=== PATIENT | male | born 1975 | race Two or more races ===

== ENCOUNTER 2019-03-20 23:18 | Emergency (ER) | payer SELFPAY ==
[~2019-03-20] VITALS: Ht 175.3 cm; Wt 102.5 kg
--- NOTE | 2019-03-20 23:20 | NUR ---
PT [id number] FOUND LAYING ON GRASS, +ETOH PER RA. PT ASLEEP. PLACED ON MONITOR AND PULSE OX. NO ACUTE DISTRESS NOTED.
--- NOTE | 2019-03-20 23:31 | NUR ---
PT TAKEN TO CT
--- NOTE | 2019-03-20 23:50 | NUR ---
DR RYANN ALLISON PER DR DINH.
[2019-03-20] MEDS ORDERED: PROPOFOL 100 ML ONE (23:57)
[2019-03-21] MEDS ORDERED: LEVETIRACETAM (500MG) 500 MG/5 ML VIAL IV ONE
[2019-03-21] MEDS: LEVETIRACETAM (500MG) 500 MG in IV NS 0.9% 100 ML IV SCH ×2 (00:15→00:16)
--- NOTE | 2019-03-21 00:15 | NUR ---
RT NOTE Late Entry: RT called beside to intubate pt per airway protection. Pt orally intubated via ETT sz #7.5, 22CM @ the lipline. Co2 colormetric color change confirmed. Equal bilateral breath sounds heard on auscultation. Pt placed on [facility] vent on noted settings per Dr Morgan. Alarms are set and audible. Vent plugged into red outlet. Ambu bag bedside. Will continue to monitor. ABG to be taken in 30 minutes. Waiting on chest Xray results Addendum: 03/21/19 at 0051 by GENESIS JIANG RT Amended: Links added.
[2019-03-21 00:18] LABS: BASOPHILS % (AUTO) 0.4 % (0.0-2.0); HEMATOCRIT 42 % (39-51); HEMOGLOBIN 14.1 g/dL (13.5-17.5); LYMPHOCYTES # (AUTO) 0.4 /CMM (0.8-4.8); LYMPHOCYTES % (AUTO) 7.1 % (20.0-44.0); MEAN CORPUSCULAR HGB CONC 34 g/dl (31.0-36.0); MEAN CORPUSCULAR VOLUME 96 fL (80-96); MONOCYTES # (AUTO) 0.3 /CMM (0.1-1.30); MONOCYTES % (AUTO) 4.6 % (2.0-12.0); NEUTROPHILS # (AUTO) 5.1 /CMM (1.8-8.9); NEUTROPHILS % (AUTO) 87.9 % (43.0-81.0); PLATELET COUNT (AUTO) 66 /CMM (150-450); RED BLOOD CELL COUNT(AUTO) 4.37 MIL/uL (4.5-6.0); WHITE BLOOD COUNT (AUTO) 5.8 K/uL (4.3-11.0)
--- NOTE | 2019-03-21 00:23 | NUR ---
INTUBATION 2358- 154/85 98% 120hr 0000- ETOMIDATE 10 0001-MELLISA 60 0001- 184/103 100% 103hr 0002- Rocc 20 0004- 210/135 90% 155hr 0006- color change bilat lung sounds 22 lip 0008-prop started 50 0009- 207/126 92% 135hr 0010- mccall 0013- NG 0016- keppra 210ml/hr
--- NOTE | 2019-03-21 00:26 | NUR ---
DR QUEZADA PAGED PER DR DINH.
[2019-03-21 00:29] LABS: CALCIUM, SERUM 8.7 mg/dL (8.5-10.1); CARBON DIOXIDE 24 mmol/L (21-32); CHLORIDE 102 mmol/L (98-107); CREATININE 0.8 mg/dL (0.6-1.3); GLUCOSE 125 mg/dL (74-106); SODIUM SERUM 140 mmol/L (136-145); UREA NITROGEN, BLOOD 5 mg/dL (7-18)
[2019-03-21] MEDS ORDERED: ROCURONIUM BROMIDE 100 MG/10 ML VIAL IV ONE (00:30)
[2019-03-21] MEDS ORDERED: ETOMIDATE 2 MG/ML VIAL IV ONE (00:30)
[2019-03-21] MEDS ORDERED: PROPOFOL 100 ML IV PRN (00:30)
[2019-03-21 00:36] LABS: BILIRUBIN,DIRECT 2.2 mg/dL (0.0-0.2)
[2019-03-21 00:37] LABS: ALANINE AMINOTRANSFERASE 69 U/L (12-78); ALBUMIN 3.3 g/dL (3.4-5.0); ALKALINE PHOSPHATASE 118 U/L (46-116); ASPARTATE AMINOTRANSFERASE 232 U/L (15-37); TOTAL PROTEIN, SERUM 9.2 g/dL (6.4-8.2)
[2019-03-21 00:38] LABS: ACETAMINOPHEN 0 ug/ml (10-30); ALCOHOL, BLOOD 148 mg/dL (0-0); SALICYLATE < 0.2 mg/dL (2.8-20.0)
--- NOTE | 2019-03-21 01:05 | NUR ---
PER [facility] TRANSFER SHAKIR #30. NO BEDS AVAILABLE BEDS FOR TRANSFER AT THIS MOMENT.
--- NOTE | 2019-03-21 01:05 | NUR ---
Noe wayne in [facility] - 03/21/19 at 0111 by YA PER SHAKIR #30. NO BEDS AVAILABLE BEDS FOR TRANSFER AT THIS MOMENT.
--- NOTE | 2019-03-21 01:10 | NUR ---
NEURO CHECK DONE EYES NOT REACTIVE TO LIGHT. R EYE 4MM L EYE 1MM
--- NOTE | 2019-03-21 01:15 | NUR ---
[facility] TRANSFER CENTER CALLED FOR HIGHER LEVEL OF CARE.
--- NOTE | 2019-03-21 01:20 | NUR ---
PT ACCEPTED TO [facility] BY DR KARIME ROTHMAN. PENDING ETA.
[2019-03-21 01:29] LABS: ABG BASE EXCESS -1.8 mmol/L; ABG OXYGEN SATURATION 98.7 % (92.0-98.5); ABG PCO2 36.6 mmHg (35.0-45.0); ABG PH 7.405 (7.350-7.450); ABG PO2 158.6 mmHg (75.0-100.0); AaDO2 517.8 mmHg; COHb 0.7 % (0.5-1.5); MetHb 0.5 % (0.0-1.5); O2Hb 97.5 % (94.0-97.0); SITE, ABG Right Radial; VENT MODE, BG AC 16 500 100% +5
--- NOTE | 2019-03-21 01:33 | NUR ---
[facility] ETA 30MIN
--- NOTE | 2019-03-21 01:38 | NUR ---
REPORT GIVEN TO GERARDO SARAVIA AT [facility]
[2019-03-21] MEDS ORDERED: LORAZEPAM INJ 2 MG/ML VIAL ONE (01:39)
[2019-03-21 01:42] LABS: LYMPHOCYTES % (MANUAL) 6 % (16-48); MONOCYTES % (MANUAL) 1 % (0-11.0); NEUTROPHILS % (MANUAL) 93 (42-76)
[2019-03-21] MEDS ORDERED: DESMOPRESSIN 4 MCG/ML AMPUL ONE (01:46)
[2019-03-21] MEDS ORDERED: PROPOFOL 100 ML ONE (01:59)
[2019-03-21] MEDS ORDERED: LORAZEPAM INJ 2 MG/ML VIAL IV ONE (02:00)
[2019-03-21] MEDS ORDERED: NS 0.9% IV ONE ×2 (02:00)
[2019-03-21] MEDS ORDERED: DESMOPRESSIN IV ONE ×2 (02:00)
--- NOTE | 2019-03-21 02:15 | NUR ---
Transfer at bedside
[2019-03-21 02:16] VITALS: BP 140/81
--- NOTE | 2019-03-21 02:21 | NUR ---
PT TRANSFERED PER [facility]
== END 2019-03-21 02:25 | disposition short-term general hospital (02) ==
LOC: ER 23:20
DX: S00.81XA Abrasion of other part of head, initial encounter (principal); I61.8 Other nontraumatic intracerebral hemorrhage; F10.129 Alcohol abuse with intoxication, unspecified; F19.10 Other psychoactive substance abuse, uncomplicated; W19.XXXA Unspecified fall, initial encounter; Y93.89 Activity, other specified; Y92.89 Other specified places as the place of occurrence of the external cause; Y99.8 Other external cause status; Y90.6 Blood alcohol level of 120-199 mg/100 ml
CPT/HCPCS: 31500; 31720; 36415; 36600 ×2; 51702; 70450; 71045; 80048; 80076; 80305; 80307; 80329; 82803; 82962; 84484; 85025; 85652; 85730; 93005; 96365; 96375; 99291; 99292; A4216 ×2; G0480; J1953; J2060; J2597 ×2; J3490 ×3; J7030

== ENCOUNTER 2019-10-28 13:01 | Inpatient (IN) | payer OTHER ==
[2019-10-28] VITALS: BP 82/53
[~2019-10-28] VITALS: Ht 177.8 cm; Wt 79.4 kg
[2019-10-28] MEDS ORDERED: PANTOPRAZOLE 40 MG VIAL IV ONE (13:30)
[2019-10-28] MEDS ORDERED: IV NS 0.9% 500 ML BAG IV ONE (13:30)
--- NOTE | 2019-10-28 13:35 | NUR ---
MAURILIO FROM [facility]. TO ER BED 7. AAOX1, NOT IN RESP DSITRESS, BREATHING EVEN AND UNLABORED. SENT BY THE FACILITY FOR EVAL OF BRIGHT - DARK RED BLOODY STOOL WHICH WAS FIRST NOTED @ 0430. PT WAS REPORTED TO HAVE 2 EPISODE OF THE BLOODY STOOL. NO NAUSEA NOR VOMMITING NOTED. WAS AT THE BEDSIDE FOR EVAL. ORDERS RECEIVED NOTED AND CARRIED OUT
--- NOTE | 2019-10-28 13:37 | NUR ---
MOVE SHEET SUBMITTED AND CALLED FOR A TELE BED.
[2019-10-28] MEDS ORDERED: PANTOPRAZOLE 40 MG VIAL ONE (13:44)
[2019-10-28 13:48] LABS: BASOPHILS # (AUTO) 0.1 /CMM (0.0-0.2); BASOPHILS % (AUTO) 0.5 % (0.0-2.0); EOSINOPHILS % (AUTO) 0.8 % (0.0-6.0); HEMATOCRIT 39 % (39-51); LYMPHOCYTES # (AUTO) 1.3 /CMM (0.8-4.8); LYMPHOCYTES % (AUTO) 12.2 % (20.0-44.0); MEAN CORPUSCULAR HGB CONC 34 g/dl (31.0-36.0); MEAN CORPUSCULAR VOLUME 88 fL (80-96); MONOCYTES # (AUTO) 1.2 /CMM (0.1-1.30); MONOCYTES % (AUTO) 10.9 % (2.0-12.0); NEUTROPHILS % (AUTO) 75.6 % (43.0-81.0); PLATELET COUNT (AUTO) 167 /CMM (150-450); RED BLOOD CELL COUNT(AUTO) 4.37 MIL/uL (4.5-6.0); WHITE BLOOD COUNT (AUTO) 10.5 K/uL (4.3-11.0)
[2019-10-28 13:56] LABS: CALCIUM, SERUM 9.7 mg/dL (8.5-10.1); CARBON DIOXIDE 25 mmol/L (21-32); CHLORIDE 100 mmol/L (98-107); CREATININE 0.7 mg/dL (0.6-1.3); GLUCOSE 104 mg/dL (74-106); POTASSIUM 4.3 mmol/L (3.5-5.1); SODIUM SERUM 133 mmol/L (136-145); UREA NITROGEN, BLOOD 12 mg/dL (7-18)
[2019-10-28 14:02] LABS: ALANINE AMINOTRANSFERASE 39 U/L (12-78); ALKALINE PHOSPHATASE 151 U/L (46-116); ASPARTATE AMINOTRANSFERASE 49 U/L (15-37); BILIRUBIN,DIRECT 0.3 mg/dL (0.0-0.2); BILIRUBIN,TOTAL 0.9 mg/dL (0.2-1.0); LIPASE 202 U/L (73-393); TOTAL PROTEIN, SERUM 8.8 g/dL (6.4-8.2)
[2019-10-28] MEDS ORDERED: IV NS 0.9% 1,000 ML IV ONE (15:00)
--- NOTE | 2019-10-28 15:06 | NUR ---
DR CORDERO PAGED. AWAITING CALL BACK.
--- NOTE | 2019-10-28 15:25 | NUR ---
CONSUELO CALLED BACK AND WANTS [facility].
--- NOTE | 2019-10-28 15:28 | NUR ---
[facility] PAGED
--- NOTE | 2019-10-28 15:36 | NUR ---
GERARDO PAEZ AT BEDSIDE
[2019-10-28] MEDS ORDERED: MAG HYDROX/AL HYDROX/SIMETH 30 ML UDC PO PRN (16:00)
[2019-10-28] MEDS ORDERED: ONDANSETRON HCL/PF 4 MG/2 ML VIAL IVP PRN (16:00)
[2019-10-28] MEDS ORDERED: Z GUARD REMEDY 2 OZ OINT TP PRN (16:00)
[2019-10-28] MEDS ORDERED: MAGNESIUM HYDROXIDE 30 ML UDC PO PRN (16:00)
[2019-10-28] MEDS ORDERED: ACETAMINOPHEN 325 MG TABLET PO PRN (16:00)
[2019-10-28] MEDS ORDERED: DEXT15DR6 OP (16:07)
[2019-10-28] MEDS ORDERED: PSYL1PAC8 PO (16:23)
[2019-10-28] MEDS ORDERED: RIFA550T PO (16:23)
[2019-10-28] MEDS ORDERED: THIA100T74 PO (16:23)
[2019-10-28] MEDS ORDERED: ACET-2605 PO (16:23)
[2019-10-28] MEDS ORDERED: OLAN10TA3 PO (16:23)
[2019-10-28] MEDS ORDERED: ALBU6.7H9 INH (16:23)
[2019-10-28] MEDS ORDERED: NA P133E RC (16:23)
[2019-10-28] MEDS ORDERED: SACC250C PO (16:23)
[2019-10-28] MEDS ORDERED: ACET-868 PO (16:23)
[2019-10-28] MEDS ORDERED: CRAN3875 PO (16:23)
[2019-10-28] MEDS ORDERED: FURO-145 PO (16:23)
[2019-10-28] MEDS ORDERED: FAMO20TA8 PO (16:23)
[2019-10-28] MEDS ORDERED: MAGN24002 PO (16:23)
[2019-10-28] MEDS ORDERED: LACT10SO PO (16:23)
[2019-10-28] MEDS ORDERED: PROP10TA10 PO (16:23)
[2019-10-28] MEDS ORDERED: SPIR50TA5 PO (16:23)
[2019-10-28] MEDS ORDERED: FOLIC ACID PO (16:23)
[2019-10-28] MEDS ORDERED: MELA5TAB PO (16:23)
[2019-10-28] MEDS ORDERED: GABA-536 PO (16:23)
--- NOTE | 2019-10-28 18:10 | NUR ---
report given to RANI Lipscomb for roni.
--- NOTE | 2019-10-28 18:35 | NUR ---
pt tranported to unit on [facility] with emt and rn at bedside w/ acls protocol. nad noted during transport.
[2019-10-28 19:00] VITALS: BP 92/46
--- NOTE | 2019-10-28 19:00 | NUR ---
Patient arrived around 1845, A/o x1, confused, showing no signs of acute distress or SOB, stable on RA. Vital signs BP 92/46 HR 67 RR 20 T 99.6 o2 sat 98% on RA. Patient stood up and ambulated to bathroom with assistance, stool OB collected and sent to lab. Patient weight is 215 lbs. Fall safety aspiration and seizure precautions enforced. Bedside report given to senior policy advisor RN for YAIR.
[2019-10-28 20:00] VITALS: BP 116/47
--- NOTE | 2019-10-28 20:00 | NUR ---
RN ADMITTING NOTES RECEIVED PATIENT LYING IN BED, CALM RESTING COMFORTABLY, AM NURSE WAS ABLE TO COLLECT STOOL SPECIMEN FOR OCCULT BLOOD. NO SIGNS OF ACUTE RESPIRATORY OR ACUTE CARDIAC DISTRESS NOTED. PROVIDED COMFORT, SAFETY MEASURES IN PLACE, ASPIRATION PRECAUTION EMPHASIZED, CALL LIGHT WITHIN EASY REACH, BED IN LOW LOCKED POSITION. ADMISSION PROCESS INITIATED, INITIAL PHYSICAL ASSESSMENT INITIATED. ALL NEEDS ANTICIPATED, OFFERED TO USE DIAPER PATIENT REFUSED. URINAL AT BEDSIDE. WILL CONTINUE TO MONITOR ACCORDINGLY.
[2019-10-28 20:25] LABS: OCCULT BLOOD STOOL POSITIVE (NEGATIVE)
[2019-10-28] MEDS: IV NS 0.9% 1,000 ML IV PRN (21:16)
[2019-10-29 04:00] VITALS: BP 82/53
--- NOTE | 2019-10-29 06:20 | NUR ---
RN NOTES ALL NEEDS ATTENDED AND MET, SAFETY MEASURES IN PLACE, ABLE TO REST AND SLEPT AT INTERVALS, KEPT CLEAN DRY AND COMFORTABLE, REPOSITIONED FOR COMFORT. HAD X1 BLOODY STOOL ON MY SHIFT, UNABLE TO COLLECT URINE SPECIMEN, INSTRUCTED PATIENT TO USE URINAL TO COLLECT URINE. ALL NEEDS ANTICIPATED, ASPIRATION PRECAUTION EMPHASIZED, CALL LIGHT WITHIN EASY REACH, BED IN LOW LOCKED POSITIONED. WILL ENDORSE TO AM NURSE FOR CONTINUITY OF CARE.
--- NOTE | 2019-10-29 06:37 | NUR ---
RN NOTES CALLED [facility]. SPOKE WITH RANI SCOTT ), ASKED REGARDINGG POLST, STILL AWAITING COMPLETION FROM RESPONSIBLE DEMOCRAT YASMIN ISBELL ). PATIENT HAS NO KNOWN FOOD OR DRUG ALLERGY AND WAS ON MECHANICAL SOFT DIET FOR DYSPHAGIA PER [facility] FILES.
[2019-10-29] MEDS ORDERED: PANTOPRAZOLE 40 MG TABLET.DR PO SCH (07:30)
--- NOTE | 2019-10-29 07:45 | NUR ---
RN /TELE OPENING NOTES NOTES RECEIVED PATIENT LYING IN BED, CALM RESTING COMFORTABLY, AAOx1. NO SIGNS OF ACUTE RESPIRATORY OR ACUTE CARDIAC DISTRESS NOTED. ON LIQUID DIET AT THIS TIME WITH ORDER FOR SWALLOW EVAL , SAFETY MEASURES IN PLACE, ASPIRATION PRECAUTION EMPHASIZED, CALL LIGHT WITHIN EASY REACH, BED IN LOW LOCKED POSITION. ALL NEEDS ANTICIPATED. URINAL AT BEDSIDE. WILL CONTINUE TO MONITOR ACCORDINGLY.
[2019-10-29 08:00] VITALS: BP 102/61
[2019-10-29 08:15] LABS: BASOPHILS % (AUTO) 0.2 % (0.0-2.0); EOSINOPHILS % (AUTO) 0.8 % (0.0-6.0); HEMATOCRIT 35 % (39-51); HEMOGLOBIN 11.7 g/dL (13.5-17.5); LYMPHOCYTES # (AUTO) 1.8 /CMM (0.8-4.8); LYMPHOCYTES % (AUTO) 21.8 % (20.0-44.0); MEAN CORPUSCULAR HGB CONC 33 g/dl (31.0-36.0); MEAN CORPUSCULAR VOLUME 88 fL (80-96); MONOCYTES # (AUTO) 0.8 /CMM (0.1-1.30); MONOCYTES % (AUTO) 9.2 % (2.0-12.0); NEUTROPHILS # (AUTO) 5.7 /CMM (1.8-8.9); PLATELET COUNT (AUTO) 149 /CMM (150-450); RED BLOOD CELL COUNT(AUTO) 3.99 MIL/uL (4.5-6.0); WHITE BLOOD COUNT (AUTO) 8.3 K/uL (4.3-11.0)
[2019-10-29] MEDS ORDERED: ACETAMINOPHEN 325 MG TABLET PO PRN (08:30)
[2019-10-29] MEDS ORDERED: ACETAMINOPHEN ES 500 MG TABLET PO PRN (08:30)
[2019-10-29] MEDS ORDERED: NA PHOS,M-B/NA PHOS,DI-BA 1 EA ENEMA RC PRN (08:30)
[2019-10-29] MEDS ORDERED: Medication Not On Formulary EA (Magnesium Hydroxide (Milk Of Magnesia) 2,400 MG) PO PRN (08:30)
[2019-10-29 08:35] LABS: ALBUMIN 2.7 g/dL (3.4-5.0); BILIRUBIN,DIRECT 0.5 mg/dL (0.0-0.2); BILIRUBIN,TOTAL 1.4 mg/dL (0.2-1.0); CREATININE 0.6 mg/dL (0.6-1.3); MAGNESIUM 1.8 mg/dL (1.8-2.4); PHOSPHORUS 3.9 mg/dL (2.5-4.9); POTASSIUM 3.6 mmol/L (3.5-5.1); TOTAL PROTEIN, SERUM 7.5 g/dL (6.4-8.2)
[2019-10-29 08:42] LABS: THYROID STIMULATING HORMONE 1.489 uIU/mL (0.358-3.74)
[2019-10-29] MEDS ORDERED: Medication Not On Formulary EA (Cran/Vitc/Mannose/Inulin/Brom (Uti-Stat Liquid) 3,875 MG PO SCH (09:00)
[2019-10-29] MEDS: PSYLLIUM SEED 1 PKT PACKET PO SCH ×2 (10:34→18:02)
[2019-10-29] MEDS: FOLIC ACID 1 MG TABLET PO SCH (10:34)
[2019-10-29] MEDS: RIFAXIMIN 550 MG TABLET PO SCH ×2 (10:34→18:02)
[2019-10-29] MEDS: POLYVINYL ALCOHOL/POVIDONE 0.4 ML DROPERETTE EACHEYE SCH ×3 (10:35→18:01)
[2019-10-29] MEDS: GABAPENTIN 400 MG CAPSULE PO SCH ×2 (12:10→18:02)
[2019-10-29] MEDS: LACTULOSE 10 G/15 ML UDC (PYXIS) PO SCH ×2 (12:11→20:30)
[2019-10-29] MEDS ORDERED: ALBUTEROL FS 2.5 MG/3 ML VIAL.NEB NEB PRN (13:30)
[2019-10-29 16:00] VITALS: BP 96/62
[2019-10-29] MEDS: THIAMINE HCL 100 MG TABLET PO SCH (18:02)
--- NOTE | 2019-10-29 18:45 | NUR ---
RN /TELE CLOSING NOTES NOTES NOTES PATIENT LYING IN BED, CALM RESTING COMFORTABLY, AAOx1. NO SIGNS OF ACUTE RESPIRATORY OR ACUTE CARDIAC DISTRESS NOTED ON RA. ON LIQUID DIET AT THIS TIME SWALLOW EVAL DONE PT ABLE TO HAD [facility] SOFT DIET WHEN READY , SAFETY MEASURES IN PLACE, ASPIRATION PRECAUTION EMPHASIZED, CALL LIGHT WITHIN EASY REACH, BED IN LOW LOCKED POSITION. ALL NEEDS ANTICIPATED. URINAL AT BEDSIDE URINE SPECIMEN COLLECTED. WILL CONTINUE TO MONITOR ACCORDINGLY.
[2019-10-29 18:47] LABS: APPEARANCE,URINE CLEAR (CLEAR); BILIRUBIN,URINE NEGATIVE (NEGATIVE); BLOOD, URINE MODERATE Ery/uL (NEGATIVE); COLOR,URINE YELLOW (YELLOW); KETONES,URINE NEGATIVE (NEGATIVE); LEUKOCYTE ESTERASE ,URINE NEGATIVE (NEGATIVE); NITRITE, URINE NEGATIVE (NEGATIVE); PROTEIN,URINE NEGATIVE (NEGATIVE); UGLUCOSE NEGATIVE (NEGATIVE)
[2019-10-29 18:52] LABS: BACTERIA,URINE Few /HPF (None Seen); RBC,URINE 51-80 /HPF (0-2); SQUAMOUS EPITHELIAL CELL,UR Few /HPF (None Seen); WBC,URINE 0-2 /HPF (0-3)
--- NOTE | 2019-10-29 19:43 | NUR ---
RN NOTES RECEIVED PATIENT LYING IN BED, CALM RESTING COMFORTABLY, AWAKE ALERT ORIENTEDx1. NO SIGNS OF ACUTE RESPIRATORY OR ACUTE CARDIAC DISTRESS NOTED. SAFETY MEASURES IN PLACE, ASPIRATION PRECAUTION EMPHASIZED, CALL LIGHT WITHIN EASY REACH, BED IN LOW LOCKED POSITION. ALL NEEDS ANTICIPATED. URINAL AT BEDSIDE. WILL CONTINUE TO MONITOR ACCORDINGLY.
[2019-10-29 20:00] VITALS: BP 100/65
[2019-10-29] MEDS: PANTOPRAZOLE 40 MG VIAL IV SCH (20:29)
[2019-10-29] MEDS ORDERED: FEE PK DOSING 1 MIN EA MC ONE (20:35)
[2019-10-29 20:36] VITALS: BP 100/65
[2019-10-29] MEDS ORDERED: VANCOMYCIN 1.25 GM in IV D5W 250 ML IV ONE (21:00)
[2019-10-29] MEDS: OLANZAPINE 10 MG TABLET PO SCH (21:22)
[2019-10-29] MEDS: FAMOTIDINE (20 MG) 20 MG TABLET PO SCH (21:22)
[2019-10-29] MEDS ORDERED: Medication Not On Formulary EA (Melatonin 10 MG) PO SCH (22:00)
[2019-10-29] MEDS ORDERED: Medication Not On Formulary EA (Saccharomyces Boulardii (Florastor) 250 MG) PO SCH (22:00)
[2019-10-30] MEDS: GABAPENTIN 400 MG CAPSULE PO SCH ×5 (00:22→23:10)
[2019-10-30] MEDS ORDERED: VANCOMYCIN 1 GM in IV D5W 250 ML IV SCH (05:00)
[2019-10-30] MEDS: LACTULOSE 10 G/15 ML UDC (PYXIS) PO SCH ×3 (05:21→20:10)
--- NOTE | 2019-10-30 06:25 | NUR ---
RN NOTES ALL NEEDS ATTENDED AND MET. PATIENT LYING IN BED, CALM RESTING COMFORTABLY, AWAKE ALERT ORIENTEDx1. NO SIGNS OF ACUTE RESPIRATORY OR ACUTE CARDIAC DISTRESS NOTED. STARTED VANCOMYCIN 1 GM IV EVERY 8 HOURS FOR GRAM POSITIVE COCCI #1 BOTTLE BBLOOD CULTURE RESULT. WILL HAVE VANCO TROUGH TODAY 10/30/19 AT [id number] MEASURES IN PLACE, ASPIRATION PRECAUTION EMPHASIZED, CALL LIGHT WITHIN EASY REACH, BED IN LOW LOCKED POSITION. ALL NEEDS ANTICIPATED. URINAL AT BEDSIDE. WILL CONTINUE TO MONITOR ACCORDINGLY. Addendum: 10/30/19 at 0628 by SRIDEVI LYNN RN RN NOTES ALL NEEDS ATTENDED AND MET. PATIENT LYING IN BED, CALM RESTING COMFORTABLY, AWAKE ALERT ORIENTEDx1. NO SIGNS OF ACUTE RESPIRATORY OR ACUTE CARDIAC DISTRESS NOTED. STARTED VANCOMYCIN 1 GM IV EVERY 8 HOURS FOR GRAM POSITIVE COCCI #1 BOTTLE BBLOOD CULTURE RESULT. WILL HAVE VANCO TROUGH TODAY 10/30/19 AT 1999. SAFETY MEASURES IN PLACE, ASPIRATION PRECAUTION EMPHASIZED, CALL LIGHT WITHIN EASY REACH, BED IN LOW LOCKED POSITION. ALL NEEDS ANTICIPATED. URINAL AT BEDSIDE. WILL ENDORSE TO AM NURSE FOR CONTINUITY OF CARE.
[2019-10-30 07:27] LABS: BASOPHILS % (AUTO) 0.3 % (0.0-2.0); EOSINOPHILS % (AUTO) 0.8 % (0.0-6.0); HEMATOCRIT 36 % (39-51); LYMPHOCYTES # (AUTO) 1.5 /CMM (0.8-4.8); LYMPHOCYTES % (AUTO) 16.3 % (20.0-44.0); MEAN CORPUSCULAR HGB CONC 34 g/dl (31.0-36.0); MEAN CORPUSCULAR VOLUME 88 fL (80-96); MONOCYTES # (AUTO) 0.6 /CMM (0.1-1.30); MONOCYTES % (AUTO) 7.1 % (2.0-12.0); NEUTROPHILS # (AUTO) 6.8 /CMM (1.8-8.9); NEUTROPHILS % (AUTO) 75.5 % (43.0-81.0); PLATELET COUNT (AUTO) 142 /CMM (150-450); RED BLOOD CELL COUNT(AUTO) 4.07 MIL/uL (4.5-6.0)
--- NOTE | 2019-10-30 07:30 | NUR ---
RN MS NOTES PT IN BED, ASLEEP, EASY TO AROUSE, NO SIGN OF PAIN OR DISTRESS, CALL LIGHT WITHIN REACH, IV FLUIDS INFUSING, KEPT MANAGER CLUB BED.
[2019-10-30 07:32] LABS: CALCIUM, SERUM 9.2 mg/dL (8.5-10.1); CREATININE 0.7 mg/dL (0.6-1.3); MAGNESIUM 1.7 mg/dL (1.8-2.4); POTASSIUM 3.4 mmol/L (3.5-5.1)
[2019-10-30 08:00] VITALS: BP 107/63
[2019-10-30] MEDS: PSYLLIUM SEED 1 PKT PACKET PO SCH ×2 (08:36→16:22)
[2019-10-30] MEDS: FOLIC ACID 1 MG TABLET PO SCH (08:36)
[2019-10-30] MEDS: PANTOPRAZOLE 40 MG VIAL IV SCH ×2 (08:36→20:10)
[2019-10-30] MEDS: RIFAXIMIN 550 MG TABLET PO SCH ×2 (08:36→17:07)
[2019-10-30] MEDS: POLYVINYL ALCOHOL/POVIDONE 0.4 ML DROPERETTE EACHEYE SCH ×2 (08:36→12:08)
[2019-10-30] MEDS: IV NS 0.9% 1,000 ML IV PRN (09:18)
[2019-10-30] MEDS: Magnesium 1GM/D5W 100ML PREMIX 100 ML IV SCH ×2 (11:00→12:08)
--- NOTE | 2019-10-30 12:34 | NUR ---
RN MS NOTES PT IN BED, AWAKE, ALERT AND VERBALLY RESPONSIVE, WITH CONFUSION, NO SIGN OF PAIN OR DISTRESS, CALL LIGHT WITHIN REACH, SEEN BY DR. PAEZ, KEPT PT COMFORTABLE.
[2019-10-30] MEDS ORDERED: POTASSIUM CHLORIDE 20 MEQ POWDER PACKET PO ONE (14:00)
[2019-10-30 15:53] VITALS: BP 106/67
--- NOTE | 2019-10-30 17:00 | NUR ---
RN MS NOTES METAMUCIL NOT GIVEN, PT HAD 3X BM.
[2019-10-30] MEDS: THIAMINE HCL 100 MG TABLET PO SCH (17:07)
--- NOTE | 2019-10-30 18:25 | NUR ---
RN MS NOTES PT IN BED, AWAKE, ALERT AND VERBALLY RESPONSIVE, WITH CONFUSION, ASSISTED WITH DINNER, PM CARE PROVIDED, PM MEDS GIVEN ORDERED, IV FLUIDS INFUSING WELL, SEEN BY DR. HACKETT, URINE SPECIMEN SENT TO LAB, ALL NEEDS ATTENDED.
--- NOTE | 2019-10-30 19:38 | NUR ---
MS RN OPENING NOTES PATIENT AWAKE IN BED. A/OX1; CONFUSED. ABLE TO SPEAK AND UNDERSTAND A LITTLE [place]. ON RA; NO S/S OF ACUTE RESPIRATORY DISTRESS; BREATHING IS EVEN AND UNLABORED. NO C/O PAIN. IV PRESENT ON LEFT FA, SIZE 22, INTACT & PATENT WITH NS RUNNING AT 125 ML/HR. SAFETY MEASURES IN PLACE AND PATIENT'S NEEDS MET. BED LOCKED, ALARM ON, SIDE RAILS X2, CALL LIGHT WITHIN REACH. WILL CONTINUE TO MONITOR.
[2019-10-30 19:43] LABS: OSMOLALITY,URINE 350 mOS/kg (340-1090)
[2019-10-30 20:00] VITALS: BP 109/75
[2019-10-30] MEDS: MUPIROCIN OINT 2% 22 GM TUBE SCH (20:15)
[2019-10-30 20:56] VITALS: BP 109/75
[2019-10-30] MEDS: FAMOTIDINE (20 MG) 20 MG TABLET PO SCH (22:30)
[2019-10-30] MEDS: OLANZAPINE 10 MG TABLET PO SCH (22:30)
[2019-10-31 00:23] LABS: URINE SODIUM, RANDOM 112 mmol/l (40-220)
[2019-10-31] MEDS: LACTULOSE 10 G/15 ML UDC (PYXIS) PO SCH ×2 (05:55→12:53)
[2019-10-31] MEDS: GABAPENTIN 400 MG CAPSULE PO SCH ×2 (05:55→12:53)
[2019-10-31 06:31] LABS: BASOPHILS % (AUTO) 0.3 % (0.0-2.0); EOSINOPHILS % (AUTO) 1.4 % (0.0-6.0); HEMATOCRIT 36 % (39-51); HEMOGLOBIN 12.1 g/dL (13.5-17.5); LYMPHOCYTES # (AUTO) 1.6 /CMM (0.8-4.8); LYMPHOCYTES % (AUTO) 21.2 % (20.0-44.0); MEAN CORPUSCULAR HGB CONC 34 g/dl (31.0-36.0); MEAN CORPUSCULAR VOLUME 89 fL (80-96); MONOCYTES # (AUTO) 0.7 /CMM (0.1-1.30); NEUTROPHILS # (AUTO) 5.1 /CMM (1.8-8.9); NEUTROPHILS % (AUTO) 68.1 % (43.0-81.0); PLATELET COUNT (AUTO) 145 /CMM (150-450); RED BLOOD CELL COUNT(AUTO) 4.04 MIL/uL (4.5-6.0); WHITE BLOOD COUNT (AUTO) 7.4 K/uL (4.3-11.0)
[2019-10-31 06:57] LABS: ALBUMIN 2.6 g/dL (3.4-5.0); BILIRUBIN,DIRECT 0.4 mg/dL (0.0-0.2); BILIRUBIN,TOTAL 1.1 mg/dL (0.2-1.0); CALCIUM, SERUM 9.3 mg/dL (8.5-10.1); CREATININE 0.7 mg/dL (0.6-1.3); PHOSPHORUS 4.4 mg/dL (2.5-4.9); POTASSIUM 3.3 mmol/L (3.5-5.1); TOTAL PROTEIN, SERUM 7.6 g/dL (6.4-8.2)
[2019-10-31 07:08] LABS: THYROID STIMULATING HORMONE 2.225 uIU/mL (0.358-3.74)
--- NOTE | 2019-10-31 07:30 | NUR ---
MS RN CLOSING NOTES PATIENT SLEEPING IN BED. A/OX1; CONFUSED. ON RA; NO S/S OF ACUTE RESPIRATORY DISTRESS; BREATHING IS EVEN AND UNLABORED. NO C/O PAIN. IV PRESENT ON LEFT FA, SIZE 22, INTACT & PATENT WITH NS RUNNING AT 125 ML/HR. SAFETY MEASURES IN PLACE AND PATIENT'S NEEDS MET. BED LOCKED, ALARM ON, SIDE RAILS X2, CALL LIGHT WITHIN REACH. WILL ENDORSE TO DAY SHIFT NURSE PLAN OF CARE.
[2019-10-31 08:00] VITALS: BP 99/65
[2019-10-31] MEDS: FOLIC ACID 1 MG TABLET PO SCH (08:12)
[2019-10-31] MEDS: PSYLLIUM SEED 1 PKT PACKET PO SCH (08:12)
[2019-10-31] MEDS: POLYVINYL ALCOHOL/POVIDONE 0.4 ML DROPERETTE EACHEYE SCH ×2 (08:12→12:43)
[2019-10-31] MEDS: MUPIROCIN OINT 2% 22 GM TUBE SCH (08:12)
[2019-10-31] MEDS: PANTOPRAZOLE 40 MG VIAL IV SCH (08:12)
[2019-10-31] MEDS: RIFAXIMIN 550 MG TABLET PO SCH (08:12)
[2019-10-31] MEDS ORDERED: MUPIROCIN OINT 2% 22 GM TUBE SCH (10:00)
[2019-10-31] MEDS ORDERED: MUPI22OI7 (12:51)
[2019-10-31] MEDS ORDERED: POTASSIUM CHLORIDE 20 MEQ TAB.PRT.SR PO ONE (13:00)
[2019-10-31 16:00] VITALS: BP 106/66
--- NOTE | 2019-10-31 16:24 | NUR ---
rn closing notes patient dc at this time. no items with him. iv line removed. report given. no photos needed at this time.
== END 2019-10-31 16:25 | DRG 254 ==
LOC: ER 13:01 → TELE 14:24 → UNDOADMIN 14:24 → TELE 17:26 → MED 10-29 08:41
PROVIDERS: ADMIT Registered Nurse; ATTEND Registered Nurse
DX: K64.9 Unspecified hemorrhoids (principal); E87.1 Hypo-osmolality and hyponatremia; D72.829 Elevated white blood cell count, unspecified; D64.9 Anemia, unspecified; R13.10 Dysphagia, unspecified; K21.9 Gastro-esophageal reflux disease without esophagitis; Z93.1 Gastrostomy status; J96.90 Respiratory failure, unspecified, unspecified whether with hypoxia or hypercapnia; G93.40 Encephalopathy, unspecified; F09 Unspecified mental disorder due to known physiological condition; G91.9 Hydrocephalus, unspecified; K70.30 Alcoholic cirrhosis of liver without ascites; I69.351 Hemiplegia and hemiparesis following cerebral infarction affecting right dominant side; Z93.0 Tracheostomy status; J98.11 Atelectasis; I10 Essential (primary) hypertension; G89.4 Chronic pain syndrome; Z22.322 Carrier or suspected carrier of Methicillin resistant Staphylococcus aureus
CPT/HCPCS: 36415; 71045-TC; 80048-TC; 80061-TC; 80076-TC; 80202-TC; 81000-TC; 82140-TC; 82272-TC; 82533; 83605-TC; 83690-TC; 83735-TC; 83935-TC; 84100-TC; 84300-TC; 84443-TC; 84484-TC; 84550-TC; 85025-TC; 85730-TC; 86850-TC; 87040-TC; 87081-TC; 92611-TC; 97110-TC; 97530-TC; C9113; G0378; J3370; J3475; J7030; J7040; J7060

== ENCOUNTER 2019-11-11 17:33 | Emergency (ER) | payer OTHER ==
[~2019-11-11] VITALS: Ht 180.3 cm; Wt 91.6 kg
[~2019-11-11 17:33] MED LIST: ACET-2605 PO; ACET-868 PO; ALBU6.7H9 INH; CRAN3875 PO; DEXT15DR6 OP; FAMO20TA8 PO; FOLIC ACID PO; FURO-145 PO; GABA-536 PO; LACT10SO PO; MAGN24002 PO; MELA5TAB PO; MUPI22OI7; NA P133E RC; OLAN10TA3 PO; PROP10TA10 PO; PSYL1PAC8 PO; RIFA550T PO; SACC250C PO; SPIR50TA5 PO; THIA100T74 PO
--- NOTE | 2019-11-11 17:33 | NUR ---
PT MAURILIO FROM [facility] C/O DIARRHEA AND BLOOD IN THE STOOL. PT IS AAOX1, NOT IN RESPIRATORY DISTRESS, HOOKED TO UMBRELLA MENDER, KEPT RESTED AND COMFORTABLE. WILL CONTINUE TO MONITOR.
--- NOTE | 2019-11-11 17:56 | NUR ---
PT SEEN AND EXAMINED BY MELINA ESPINOSA.
[2019-11-11] MEDS ORDERED: PANTOPRAZOLE 40 MG VIAL ONE (17:58)
[2019-11-11] MEDS ORDERED: PANTOPRAZOLE 40 MG VIAL IV ONE (18:00)
[2019-11-11] MEDS ORDERED: IV NS 0.9% 500 ML BAG IV ONE (18:00)
--- NOTE | 2019-11-11 18:05 | NUR ---
IV LINE ESTABLISHED BLOOD DRAWN AND SENT TO LAB.
--- NOTE | 2019-11-11 18:10 | NUR ---
FORENSICS TEAM DIRECTOR AT BEDSIDE FOR XRAY.
[2019-11-11 18:13] LABS: BASOPHILS % (AUTO) 0.5 % (0.0-2.0); EOSINOPHILS % (AUTO) 1.3 % (0.0-6.0); HEMATOCRIT 40 % (39-51); HEMOGLOBIN 13.2 g/dL (13.5-17.5); LYMPHOCYTES # (AUTO) 1.4 /CMM (0.8-4.8); LYMPHOCYTES % (AUTO) 14.7 % (20.0-44.0); MEAN CORPUSCULAR HGB CONC 33 g/dl (31.0-36.0); MEAN CORPUSCULAR VOLUME 90 fL (80-96); MONOCYTES # (AUTO) 0.9 /CMM (0.1-1.30); MONOCYTES % (AUTO) 9.2 % (2.0-12.0); NEUTROPHILS # (AUTO) 7.2 /CMM (1.8-8.9); NEUTROPHILS % (AUTO) 74.3 % (43.0-81.0); PLATELET COUNT (AUTO) 183 /CMM (150-450); RED BLOOD CELL COUNT(AUTO) 4.45 MIL/uL (4.5-6.0); WHITE BLOOD COUNT (AUTO) 9.7 K/uL (4.3-11.0)
[2019-11-11 18:24] LABS: CALCIUM, SERUM 9.5 mg/dL (8.5-10.1); CREATININE 0.8 mg/dL (0.6-1.3)
--- NOTE | 2019-11-11 18:35 | NUR ---
STOOL SPECIMEN COLLECTED AND SENT TO LAB.
[2019-11-11 18:37] LABS: ALBUMIN 3.1 g/dL (3.4-5.0); BILIRUBIN,DIRECT 0.3 mg/dL (0.0-0.2); BILIRUBIN,TOTAL 0.8 mg/dL (0.2-1.0); TOTAL PROTEIN, SERUM 8.7 g/dL (6.4-8.2)
--- NOTE | 2019-11-11 18:50 | NUR ---
COVID SWAB OBTAINED AND SENT TO LAB.
--- NOTE | 2019-11-11 19:48 | NUR ---
CALLED CALL THE CAR, RES#[id number]
--- NOTE | 2019-11-11 19:57 | NUR ---
[facility] ETA 2030
--- NOTE | 2019-11-11 20:10 | NUR ---
REPORT GIVEN TO YANNI AT [facility]
--- NOTE | 2019-11-11 20:35 | NUR ---
[facility] CARE PROVIDED. DIAPER CHANGE DONE,. NO BM
--- NOTE | 2019-11-11 20:46 | NUR ---
REPORT GIVEN TO vascular tech
[2019-11-11 20:49] VITALS: BP 110/71
--- NOTE | 2019-11-11 20:49 | NUR ---
PT WAS PIACKED UP BY AMBULANCE VIA GURNEY AND TRANSFERRED TO [facility] IN STABLE CONDITION.
[2019-11-11 20:57] LABS: OCCULT BLOOD STOOL NEGATIVE (NEGATIVE)
== END 2019-11-11 20:50 ==
LOC: ER 17:37
DX: R19.7 Diarrhea, unspecified (principal); E87.1 Hypo-osmolality and hyponatremia; J98.11 Atelectasis; I69.254 Hemiplegia and hemiparesis following other nontraumatic intracranial hemorrhage affecting left non-dominant side; G93.40 Encephalopathy, unspecified; Z20.828 Contact with and (suspected) exposure to other viral communicable diseases; Z79.899 Other long term (current) drug therapy; K21.9 Gastro-esophageal reflux disease without esophagitis; R13.10 Dysphagia, unspecified; I10 Essential (primary) hypertension
CPT/HCPCS: 36415; 71045; 80048; 80076; 82272; 85025; 87045; 87426; 87493; 89055; 93005; 96374; 99285; C9113; J7040

== ENCOUNTER 2020-09-21 12:30 | Emergency (ER) | payer OTHER ==
[~2020-09-21] VITALS: Ht 180.3 cm; Wt 125.2 kg
[~2020-09-21 12:30] MED LIST changes: -LACT10SO PO; +LACT10SO3 PO
--- NOTE | 2020-09-21 12:40 | NUR ---
The patient is bibpa, from snf, c/o generalized edema and short of breath, 92% on room air. Respiration regular and unlabored. The patient denies pain. Attached to the monitor. Will continue to monitor the patient.
[2020-09-21 13:00] LABS: BASOPHILS % (AUTO) 0.4 % (0.0-2.0); EOSINOPHILS % (AUTO) 2.7 % (0.0-6.0); HEMATOCRIT 38 % (39-51); HEMOGLOBIN 12.6 g/dL (13.5-17.5); LYMPHOCYTES # (AUTO) 1.6 /CMM (0.8-4.8); LYMPHOCYTES % (AUTO) 36.8 % (20.0-44.0); MEAN CORPUSCULAR HGB CONC 33 g/dl (31.0-36.0); MEAN CORPUSCULAR VOLUME 91 fL (80-96); MONOCYTES # (AUTO) 0.4 /CMM (0.1-1.30); MONOCYTES % (AUTO) 9.1 % (2.0-12.0); NEUTROPHILS # (AUTO) 2.2 /CMM (1.8-8.9); PLATELET COUNT (AUTO) 99 /CMM (150-450); RED BLOOD CELL COUNT(AUTO) 4.16 MIL/uL (4.5-6.0); WHITE BLOOD COUNT (AUTO) 4.4 K/uL (4.3-11.0)
[2020-09-21 13:19] LABS: CALCIUM, SERUM 8.7 mg/dL (8.5-10.1); CARBON DIOXIDE 22 mmol/L (21-32); CHLORIDE 107 mmol/L (98-107); GLUCOSE 78 mg/dL (74-106); POTASSIUM 3.8 mmol/L (3.5-5.1); SODIUM SERUM 143 mmol/L (136-145); UREA NITROGEN, BLOOD 13 mg/dL (7-18)
[2020-09-21 13:34] LABS: NT-PRO BNP 455 pg/mL (0-125)
[2020-09-21] MEDS ORDERED: FUROSEMIDE 40 MG/4 ML VIAL IV ONE (14:00)
[2020-09-21] MEDS ORDERED: FUROSEMIDE 40 MG/4 ML VIAL ONE (14:01)
--- NOTE | 2020-09-21 14:22 | NUR ---
Report given to nurse Velasco from [facility]
--- NOTE | 2020-09-21 14:58 | NUR ---
ETA for shrimp picker 1500 by [facility]
[2020-09-21 15:23] VITALS: BP 134/87
--- NOTE | 2020-09-21 15:23 | NUR ---
Patient discharged in stable condition [facility]. Written and verbal after care instructions given. Patient verbalizes understanding of instruction.
== END 2020-09-21 15:24 ==
LOC: ER 12:56
DX: I11.0 Hypertensive heart disease with heart failure (principal); I50.9 Heart failure, unspecified; K21.9 Gastro-esophageal reflux disease without esophagitis; F10.10 Alcohol abuse, uncomplicated; Z93.1 Gastrostomy status; Z79.899 Other long term (current) drug therapy; Y90.9 Presence of alcohol in blood, level not specified
CPT/HCPCS: 36415; 71045; 80048; 83880; 84484; 85025; 93005 ×2; 96374; 99291; J1940

== ENCOUNTER 2022-12-10 20:28 | Emergency (ER) | payer BC, OTHER ==
[~2022-12-10] VITALS: Ht 185.4 cm; Wt 90.7 kg
[2022-12-10] MEDS ORDERED: PIPERACI/TAZO 3.375GM/D5W 50ML PB IV ONE (21:18)
[2022-12-10] MEDS ORDERED: VANCOMYCIN 1 GM /D5W 250 ML PB IV ONE (21:18)
[2022-12-10] MEDS ORDERED: VANCOMYCIN 1 GM in IV D5W 250 ML IV ONE (21:30)
[2022-12-10] MEDS ORDERED: PIPERACILLIN /TAZOBACTAM 3.375 G in IV D5W 50 ML IV ONE (21:30)
[2022-12-10 22:08] LABS: BASOPHILS % (AUTO) 0.1 % (0.0-2.0); EOSINOPHILS % (AUTO) 0.2 % (0.0-6.0); HEMATOCRIT 47 % (39-51); HEMOGLOBIN 15.7 g/dL (13.5-17.5); LYMPHOCYTES # (AUTO) 1.5 K/uL (0.8-4.8); LYMPHOCYTES % (AUTO) 11.3 % (20.0-44.0); MEAN CORPUSCULAR HEMOGLOBIN 31 PG (26.0-33.0); MEAN CORPUSCULAR HGB CONC 34 g/dl (31.0-36.0); MEAN CORPUSCULAR VOLUME 93 fL (80-96); MONOCYTES # (AUTO) 0.9 K/uL (0.1-1.30); NEUTROPHILS # (AUTO) 10.6 K/uL (1.8-8.9); NEUTROPHILS % (AUTO) 81.4 % (43.0-81.0); PLATELET COUNT (AUTO) 135 K/uL (150-450); RED BLOOD CELL COUNT(AUTO) 5.05 MIL/uL (4.5-6.0); RED CELL DISTRIBUTION WIDTH 15.1 % (11.5-15.0)
[2022-12-10 22:16] LABS: CALCIUM, SERUM 8.5 mg/dL (8.5-10.1); CARBON DIOXIDE 24 mmol/L (21-32); CHLORIDE 97 mmol/L (98-107); CREATININE 0.9 mg/dL (0.6-1.3); GLUCOSE 92 mg/dL (74-106); POTASSIUM 4.4 mmol/L (3.5-5.1); SODIUM SERUM 129 mmol/L (136-145); UREA NITROGEN, BLOOD 14 mg/dL (7-18)
[2022-12-10 22:21] LABS: INR 1.2 (0.91-1.10); PROTHROMBIN TIME 12.5 SECS (9.2-11.1)
[2022-12-10 22:28] LABS: LACTIC ACID 2.6 mmol/L (0.4-2.0)
[2022-12-10 22:30] LABS: ALANINE AMINOTRANSFERASE 26 U/L (12-78); ALBUMIN 2.5 g/dL (3.4-5.0); ALKALINE PHOSPHATASE 81 U/L (46-116); ASPARTATE AMINOTRANSFERASE 29 U/L (15-37); BILIRUBIN,DIRECT 0.4 mg/dL (0.0-0.2); BILIRUBIN,TOTAL 1.5 mg/dL (0.2-1.0); TOTAL PROTEIN, SERUM 6.6 g/dL (6.4-8.2)
[2022-12-10] MEDS ORDERED: IV NS 0.9% 1,000 ML IV ONE (23:00)
[2022-12-11 02:00] VITALS: TEMP 97.6
[2022-12-11 03:05] LABS: APPEARANCE,URINE CLEAR (CLEAR); BILIRUBIN,URINE 1+ (NEGATIVE); BLOOD, URINE 2+ Ery/uL (NEGATIVE); COLOR,URINE DARK YELLOW (YELLOW); KETONES,URINE TRACE mg/dL (NEGATIVE); LEUKOCYTE ESTERASE ,URINE NEGATIVE (NEGATIVE); NITRITE, URINE NEGATIVE (NEGATIVE); PROTEIN,URINE 3+ mg/dl (NEGATIVE); UGLUCOSE TRACE mg/dL (NEGATIVE)
[2022-12-11 03:09] LABS: ADD URINE CULTURE NO; BACTERIA,URINE Rare /HPF (None Seen); SQUAMOUS EPITHELIAL CELL,UR Few /HPF (None Seen); WBC,URINE 0-2 /HPF (0-3)
[2022-12-11 05:30] VITALS: BP 137/76; O2SAT 97
== END 2022-12-11 06:21 | disposition short-term general hospital (02) ==
LOC: ER 20:29
DX: L03.116 Cellulitis of left lower limb (principal); L03.115 Cellulitis of right lower limb; E87.1 Hypo-osmolality and hyponatremia; I11.0 Hypertensive heart disease with heart failure; I50.9 Heart failure, unspecified; K21.9 Gastro-esophageal reflux disease without esophagitis; E11.9 Type 2 diabetes mellitus without complications; F20.9 Schizophrenia, unspecified; Z79.899 Other long term (current) drug therapy
CPT/HCPCS: 99285; 96365; 71045; 96361; 96368; 93005; 84145; 85025; 80048; 87040 ×2; 83605 ×2; 80076; 36415 ×2; 84484; 85730; 87086; 81001; J3370 ×2; J2543 ×2; J7060; J7030; A4223

== ENCOUNTER 2023-03-31 23:56 | Inpatient (IN) | payer BC ==
[~2023-03-31] VITALS: Ht 167.6 cm; Wt 73.5 kg
[2023-04-01] MEDS ORDERED: IV NS 0.9% 1,000 ML BAG IV ONE (00:30)
[2023-04-01 01:00] LABS: BASOPHILS # (AUTO) 0.1 K/uL (0.0-0.2); BASOPHILS % (AUTO) 0.5 % (0.0-2.0); EOSINOPHILS # (AUTO) 0.4 K/uL (0.0-0.7); EOSINOPHILS % (AUTO) 3.2 % (0.0-6.0); HEMATOCRIT 40 % (39-51); HEMOGLOBIN 13.3 g/dL (13.5-17.5); LYMPHOCYTES # (AUTO) 2.2 K/uL (0.8-4.8); LYMPHOCYTES % (AUTO) 17.5 % (20.0-44.0); MEAN CORPUSCULAR HEMOGLOBIN 29 PG (26.0-33.0); MEAN CORPUSCULAR HGB CONC 33 g/dl (31.0-36.0); MEAN CORPUSCULAR VOLUME 89 fL (80-96); MONOCYTES # (AUTO) 1.4 K/uL (0.1-1.30); MONOCYTES % (AUTO) 11.1 % (2.0-12.0); NEUTROPHILS # (AUTO) 8.4 K/uL (1.8-8.9); NEUTROPHILS % (AUTO) 67.7 % (43.0-81.0); PLATELET COUNT (AUTO) 191 K/uL (150-450); RED BLOOD CELL COUNT(AUTO) 4.53 MIL/uL (4.5-6.0); RED CELL DISTRIBUTION WIDTH 17.2 % (11.5-15.0); WHITE BLOOD COUNT (AUTO) 12.4 K/uL (4.3-11.0)
[2023-04-01 01:03] LABS: APPEARANCE,URINE CLEAR (CLEAR); BILIRUBIN,URINE NEGATIVE (NEGATIVE); BLOOD, URINE NEGATIVE Ery/uL (NEGATIVE); COLOR,URINE DARK YELLOW (YELLOW); KETONES,URINE TRACE mg/dL (NEGATIVE); LEUKOCYTE ESTERASE ,URINE NEGATIVE (NEGATIVE); NITRITE, URINE NEGATIVE (NEGATIVE); PH,URINE 5.5 (5.0-8.0); PROTEIN,URINE NEGATIVE (NEGATIVE); UGLUCOSE NEGATIVE (NEGATIVE); UROBILINOGEN,URINE 0.2 EU/dL (0.2)
[2023-04-01 01:10] LABS: CALCIUM, SERUM 8.7 mg/dL (8.5-10.1); CARBON DIOXIDE 23 mmol/L (21-32); CHLORIDE 100 mmol/L (98-107); CREATININE 0.7 mg/dL (0.6-1.3); GLUCOSE 97 mg/dL (74-106); POTASSIUM 3.7 mmol/L (3.5-5.1); SODIUM SERUM 131 mmol/L (136-145); UREA NITROGEN, BLOOD 6 mg/dL (7-18)
[2023-04-01 01:13] LABS: INR 1.17 (0.91-1.10); PARTIAL THROMBOPLASTIN TIME 34.5 SEC (24.3-34.3); PROTHROMBIN TIME 12.3 SECS (9.2-11.1)
[2023-04-01 01:21] LABS: ALANINE AMINOTRANSFERASE 24 U/L (12-78); ALBUMIN 2.5 g/dL (3.4-5.0); ALKALINE PHOSPHATASE 119 U/L (46-116); ASPARTATE AMINOTRANSFERASE 28 U/L (15-37); BILIRUBIN,DIRECT 0.3 mg/dL (0.0-0.2); TOTAL PROTEIN, SERUM 7.3 g/dL (6.4-8.2)
[2023-04-01 01:42] LABS: BILIRUBIN,TOTAL 0.9 mg/dL (0.2-1.0)
[2023-04-01 01:47] LABS: LACTIC ACID 2.8 mmol/L (0.4-2.0)
[2023-04-01] MEDS ORDERED: IV NS 0.9% 500 ML BAG IV ONE (02:30)
[2023-04-01] MEDS ORDERED: DEXTROSE 50%-WATER 50 ML DISP.SYRIN IV PRN (06:30)
[2023-04-01] MEDS ORDERED: ACETAMINOPHEN 325 MG TABLET PO PRN (06:30)
[2023-04-01] MEDS ORDERED: ONDANSETRON HCL/PF 4 MG/2 ML VIAL IVP PRN (06:30)
[2023-04-01] MEDS: AZITHROMYCIN 500 MG in IV D5W 250 ML IV SCH (07:00)
[2023-04-01] MEDS ORDERED: AZITHROMYCIN 500 MG VIAL ONE (07:01)
[2023-04-01] MEDS: BLOOD SUGAR DIAGNOSTIC 1 EACH STRIP IN SCH ×4 (07:42→22:09)
[2023-04-01] MEDS ORDERED: CEFTRIAXONE 1GM BAG (ER ONLY) 50 ML IV ONE (08:37)
[2023-04-01] MEDS: CEFTRIAXONE 1 G in IV D5W 50 ML IV SCH (08:54)
[2023-04-01] MEDS ORDERED: CALC1TAB30 PO (08:59)
[2023-04-01] MEDS ORDERED: TRIA80OI TP (08:59)
[2023-04-01] MEDS ORDERED: FAMO20TA8 PO (08:59)
[2023-04-01] MEDS ORDERED: XEROFORM TD (08:59)
[2023-04-01] MEDS ORDERED: CRAN425C6 PO (08:59)
[2023-04-01] MEDS ORDERED: MAGN400O6 PO (08:59)
[2023-04-01] MEDS ORDERED: SILD20TA2 PO (08:59)
[2023-04-01] MEDS ORDERED: BISA10SU11 RC (08:59)
[2023-04-01] MEDS ORDERED: DOCU-141 PO (08:59)
[2023-04-01] MEDS ORDERED: HYDR-500 PO (08:59)
[2023-04-01] MEDS ORDERED: BACL10TA PO (08:59)
[2023-04-01] MEDS ORDERED: POLY15DR40 EACHEYE (08:59)
[2023-04-01] MEDS ORDERED: LEVE500T9 PO (08:59)
[2023-04-01] MEDS ORDERED: METF-440 PO (08:59)
[2023-04-01] MEDS ORDERED: APIX5TAB PO (08:59)
[2023-04-01] MEDS ORDERED: NA P133E RC (08:59)
[2023-04-01] MEDS ORDERED: AMIN30LI2 PO (08:59)
[2023-04-01] MEDS ORDERED: ENOXAPARIN SODIUM 40 MG/0.4 ML DISP.SYRIN SQ SCH (09:00)
[2023-04-01] MEDS ORDERED: BISACODYL SUPP (10 MG) 10 MG/SUPP.RECT SUPP.RECT RC PRN (11:30)
[2023-04-01] MEDS ORDERED: hydrOXYzine 10 MG TABLET PO PRN (11:30)
[2023-04-01] MEDS: SILDENAFIL CITRATE 20 MG TABLET PO SCH ×2 (12:48→17:45)
[2023-04-01] MEDS: LACTULOSE 10 G/15 ML UDC (PYXIS) PO SCH ×2 (12:48→21:46)
[2023-04-01] MEDS: GABAPENTIN 400 MG CAPSULE PO SCH ×2 (12:48→17:45)
[2023-04-01] MEDS: BACLOFEN (10 MG) 10 MG TABLET PO SCH ×2 (12:49→21:46)
[2023-04-01] MEDS: PROPRANOLOL HCL 10 MG TABLET PO SCH ×2 (12:52→21:00)
[2023-04-01] MEDS: POLYVINYL ALCOHOL 15 ML BOTTLE EACHEYE SCH ×2 (13:20→17:44)
[2023-04-01] MEDS: INSULIN REGULAR, HUMAN 100 UNIT/ML 3 ML VIAL SQ PRN ×3 (13:21→22:10)
[2023-04-01] MEDS: RIFAXIMIN 550 MG TABLET PO SCH (17:45)
[2023-04-01] MEDS: LEVETIRACETAM (250 MG) 250 MG TABLET PO SCH (17:45)
[2023-04-01] MEDS: THIAMINE HCL 100 MG TABLET PO SCH (17:45)
[2023-04-01] MEDS: APIXABAN 5 MG TABLET PO SCH (17:48)
[2023-04-01] MEDS ORDERED: PERMETHRIN 5% CRM 60 GM TUBE TP ONE (21:00)
[2023-04-01] MEDS: OLANZAPINE 2.5 MG TABLET PO SCH (21:46)
[2023-04-01] MEDS: FAMOTIDINE (20 MG) 20 MG TABLET PO SCH (21:46)
[2023-04-01] MEDS ORDERED: Medication Not On Formulary EA (Melatonin 10 MG) PO SCH (22:00)
[2023-04-02] VITALS: BP 102/79; TEMP 98.2; O2SAT 100
[2023-04-02] MEDS: GABAPENTIN 400 MG CAPSULE PO SCH ×5 (00:14→23:43)
[2023-04-02] MEDS: BACLOFEN (10 MG) 10 MG TABLET PO SCH ×3 (04:33→21:45)
[2023-04-02] MEDS: LACTULOSE 10 G/15 ML UDC (PYXIS) PO SCH ×3 (04:33→21:46)
[2023-04-02] MEDS: PROPRANOLOL HCL 10 MG TABLET PO SCH ×3 (05:40→21:46)
[2023-04-02] MEDS: AZITHROMYCIN 500 MG in IV D5W 250 ML IV SCH (05:52)
[2023-04-02] MEDS: IV NS 0.9% 1,000 ML IV PRN ×2 (05:56→20:32)
[2023-04-02 07:36] LABS: BASOPHILS # (AUTO) 0.1 K/uL (0.0-0.2); BASOPHILS % (AUTO) 0.6 % (0.0-2.0); EOSINOPHILS # (AUTO) 0.6 K/uL (0.0-0.7); EOSINOPHILS % (AUTO) 5.7 % (0.0-6.0); HEMATOCRIT 43 % (39-51); HEMOGLOBIN 14.7 g/dL (13.5-17.5); LYMPHOCYTES # (AUTO) 1.7 K/uL (0.8-4.8); LYMPHOCYTES % (AUTO) 16.9 % (20.0-44.0); MEAN CORPUSCULAR HEMOGLOBIN 30 PG (26.0-33.0); MEAN CORPUSCULAR HGB CONC 34 g/dl (31.0-36.0); MEAN CORPUSCULAR VOLUME 88 fL (80-96); MONOCYTES # (AUTO) 1.1 K/uL (0.1-1.30); MONOCYTES % (AUTO) 10.9 % (2.0-12.0); NEUTROPHILS # (AUTO) 6.8 K/uL (1.8-8.9); NEUTROPHILS % (AUTO) 65.9 % (43.0-81.0); PLATELET COUNT (AUTO) 205 K/uL (150-450); RED BLOOD CELL COUNT(AUTO) 4.88 MIL/uL (4.5-6.0); RED CELL DISTRIBUTION WIDTH 17.1 % (11.5-15.0); WHITE BLOOD COUNT (AUTO) 10.3 K/uL (4.3-11.0)
[2023-04-02] MEDS: BLOOD SUGAR DIAGNOSTIC 1 EACH STRIP IN SCH ×4 (07:59→22:10)
[2023-04-02 08:00] VITALS: BP 90/60; TEMP 98.2
[2023-04-02 08:08] LABS: CALCIUM, SERUM 9.1 mg/dL (8.5-10.1); CREATININE 0.6 mg/dL (0.6-1.3); MAGNESIUM 1.9 mg/dL (1.8-2.4); PHOSPHORUS 4.1 mg/dL (2.5-4.9); POTASSIUM 3.2 mmol/L (3.5-5.1)
[2023-04-02] MEDS: FUROSEMIDE 20 MG TABLET PO SCH (09:00)
[2023-04-02] MEDS: SPIRONOLACTONE 25 MG TABLET PO SCH (09:00)
[2023-04-02] MEDS: RIFAXIMIN 550 MG TABLET PO SCH ×2 (09:37→18:15)
[2023-04-02] MEDS: POLYVINYL ALCOHOL 15 ML BOTTLE EACHEYE SCH ×3 (09:37→17:00)
[2023-04-02] MEDS: CEFTRIAXONE 1 G in IV D5W 50 ML IV SCH (09:37)
[2023-04-02] MEDS: SILDENAFIL CITRATE 20 MG TABLET PO SCH ×3 (09:38→18:15)
[2023-04-02] MEDS: LEVETIRACETAM (250 MG) 250 MG TABLET PO SCH ×2 (09:38→18:16)
[2023-04-02] MEDS: DOCUSATE SODIUM 100 MG CAPSULE PO SCH (09:38)
[2023-04-02] MEDS: APIXABAN 5 MG TABLET PO SCH ×2 (09:44→18:17)
[2023-04-02] MEDS ORDERED: POTASSIUM CHLORIDE 20 MEQ TAB.PRT.SR PO ONE (11:00)
[2023-04-02 14:05] VITALS: BP 100/60; TEMP 98.2
[2023-04-02 18:00] VITALS: BP 100/80; TEMP 98.5; O2SAT 100
[2023-04-02] MEDS: THIAMINE HCL 100 MG TABLET PO SCH (18:15)
[2023-04-02] MEDS: FAMOTIDINE (20 MG) 20 MG TABLET PO SCH (21:45)
[2023-04-02] MEDS: OLANZAPINE 2.5 MG TABLET PO SCH (21:45)
[2023-04-03] VITALS: BP 95/70; TEMP 98.4; O2SAT 93
[2023-04-03] MEDS: LACTULOSE 10 G/15 ML UDC (PYXIS) PO SCH ×3 (04:38→21:21)
[2023-04-03] MEDS: BACLOFEN (10 MG) 10 MG TABLET PO SCH ×3 (04:38→21:21)
[2023-04-03] MEDS: PROPRANOLOL HCL 10 MG TABLET PO SCH ×3 (04:41→21:00)
[2023-04-03] MEDS: GABAPENTIN 400 MG CAPSULE PO SCH ×3 (05:43→17:13)
[2023-04-03 06:00] VITALS: BP 92/74; TEMP 97.4; O2SAT 97
[2023-04-03] MEDS: AZITHROMYCIN 500 MG in IV D5W 250 ML IV SCH (06:24)
[2023-04-03] MEDS: BLOOD SUGAR DIAGNOSTIC 1 EACH STRIP IN SCH ×4 (06:37→21:49)
[2023-04-03] MEDS: LEVETIRACETAM (250 MG) 250 MG TABLET PO SCH ×2 (08:27→17:13)
[2023-04-03] MEDS: DOCUSATE SODIUM 100 MG CAPSULE PO SCH (08:28)
[2023-04-03] MEDS: FUROSEMIDE 20 MG TABLET PO SCH (08:28)
[2023-04-03] MEDS: SILDENAFIL CITRATE 20 MG TABLET PO SCH ×3 (08:28→17:13)
[2023-04-03] MEDS: SPIRONOLACTONE 25 MG TABLET PO SCH (08:28)
[2023-04-03] MEDS: CEFTRIAXONE 1 G in IV D5W 50 ML IV SCH (08:28)
[2023-04-03] MEDS: POLYVINYL ALCOHOL 15 ML BOTTLE EACHEYE SCH ×3 (08:28→17:14)
[2023-04-03] MEDS: RIFAXIMIN 550 MG TABLET PO SCH ×2 (08:28→17:13)
[2023-04-03] MEDS: APIXABAN 5 MG TABLET PO SCH ×2 (08:30→17:14)
[2023-04-03 11:24] LABS: BASOPHILS # (AUTO) 0.1 K/uL (0.0-0.2); BASOPHILS % (AUTO) 0.6 % (0.0-2.0); EOSINOPHILS # (AUTO) 0.9 K/uL (0.0-0.7); EOSINOPHILS % (AUTO) 10.1 % (0.0-6.0); HEMATOCRIT 43 % (39-51); HEMOGLOBIN 14.2 g/dL (13.5-17.5); LYMPHOCYTES # (AUTO) 1.5 K/uL (0.8-4.8); LYMPHOCYTES % (AUTO) 17.4 % (20.0-44.0); MEAN CORPUSCULAR HEMOGLOBIN 30 PG (26.0-33.0); MEAN CORPUSCULAR HGB CONC 33 g/dl (31.0-36.0); MEAN CORPUSCULAR VOLUME 89 fL (80-96); MONOCYTES # (AUTO) 0.9 K/uL (0.1-1.30); MONOCYTES % (AUTO) 10.6 % (2.0-12.0); NEUTROPHILS # (AUTO) 5.3 K/uL (1.8-8.9); NEUTROPHILS % (AUTO) 61.3 % (43.0-81.0); PLATELET COUNT (AUTO) 181 K/uL (150-450); RED BLOOD CELL COUNT(AUTO) 4.76 MIL/uL (4.5-6.0); RED CELL DISTRIBUTION WIDTH 17.1 % (11.5-15.0); WHITE BLOOD COUNT (AUTO) 8.6 K/uL (4.3-11.0)
[2023-04-03] MEDS: INSULIN REGULAR, HUMAN 100 UNIT/ML 3 ML VIAL SQ PRN ×3 (11:33→21:49)
[2023-04-03 11:37] LABS: CALCIUM, SERUM 8.5 mg/dL (8.5-10.1); CREATININE 0.5 mg/dL (0.6-1.3); POTASSIUM 3.8 mmol/L (3.5-5.1)
[2023-04-03 12:00] VITALS: BP 90/67; TEMP 97.7; O2SAT 97
[2023-04-03] MEDS: THIAMINE HCL 100 MG TABLET PO SCH (17:13)
[2023-04-03 18:00] VITALS: BP 96/67; TEMP 98; O2SAT 97
[2023-04-03] MEDS: IV NS 0.9% 1,000 ML IV PRN (18:34)
[2023-04-03] MEDS: OLANZAPINE 2.5 MG TABLET PO SCH (21:37)
[2023-04-03 22:00] VITALS: BP 99/56; TEMP 98.9; O2SAT 100
[2023-04-03] MEDS: FAMOTIDINE (20 MG) 20 MG TABLET PO SCH (22:31)
[2023-04-04] MEDS: GABAPENTIN 400 MG CAPSULE PO SCH ×3 (00:03→12:04)
[2023-04-04] MEDS: IV NS 0.9% 1,000 ML IV PRN (02:34)
[2023-04-04 03:10] VITALS: BP 99/56; TEMP 98.9; O2SAT 100
[2023-04-04] MEDS: LACTULOSE 10 G/15 ML UDC (PYXIS) PO SCH ×2 (04:39→12:04)
[2023-04-04] MEDS: PROPRANOLOL HCL 10 MG TABLET PO SCH ×2 (04:40→12:05)
[2023-04-04] MEDS: BACLOFEN (10 MG) 10 MG TABLET PO SCH ×2 (04:42→12:05)
[2023-04-04 06:06] VITALS: BP 100/60; TEMP 98.9; O2SAT 100
[2023-04-04] MEDS: AZITHROMYCIN 500 MG in IV D5W 250 ML IV SCH (06:10)
[2023-04-04 06:53] LABS: BASOPHILS # (AUTO) 0.1 K/uL (0.0-0.2); BASOPHILS % (AUTO) 0.6 % (0.0-2.0); EOSINOPHILS # (AUTO) 1.3 K/uL (0.0-0.7); EOSINOPHILS % (AUTO) 13.3 % (0.0-6.0); HEMATOCRIT 38 % (39-51); LYMPHOCYTES % (AUTO) 20.8 % (20.0-44.0); MEAN CORPUSCULAR HEMOGLOBIN 30 PG (26.0-33.0); MEAN CORPUSCULAR HGB CONC 34 g/dl (31.0-36.0); MEAN CORPUSCULAR VOLUME 87 fL (80-96); MONOCYTES % (AUTO) 10.7 % (2.0-12.0); NEUTROPHILS # (AUTO) 5.3 K/uL (1.8-8.9); NEUTROPHILS % (AUTO) 54.6 % (43.0-81.0); PLATELET COUNT (AUTO) 208 K/uL (150-450); RED CELL DISTRIBUTION WIDTH 16.5 % (11.5-15.0); WHITE BLOOD COUNT (AUTO) 9.8 K/uL (4.3-11.0)
[2023-04-04 07:06] LABS: CALCIUM, SERUM 8.6 mg/dL (8.5-10.1); CREATININE 0.6 mg/dL (0.6-1.3); POTASSIUM 3.5 mmol/L (3.5-5.1)
[2023-04-04] MEDS: BLOOD SUGAR DIAGNOSTIC 1 EACH STRIP IN SCH ×3 (08:00→16:54)
[2023-04-04] MEDS: INSULIN REGULAR, HUMAN 100 UNIT/ML 3 ML VIAL SQ PRN ×2 (08:01→12:03)
[2023-04-04] MEDS: CEFTRIAXONE 1 G in IV D5W 50 ML IV SCH (08:13)
[2023-04-04] MEDS: RIFAXIMIN 550 MG TABLET PO SCH ×2 (08:17→16:43)
[2023-04-04] MEDS: DOCUSATE SODIUM 100 MG CAPSULE PO SCH (08:17)
[2023-04-04] MEDS: POLYVINYL ALCOHOL 15 ML BOTTLE EACHEYE SCH ×3 (08:17→16:45)
[2023-04-04] MEDS: SILDENAFIL CITRATE 20 MG TABLET PO SCH ×3 (08:17→16:43)
[2023-04-04] MEDS: LEVETIRACETAM (250 MG) 250 MG TABLET PO SCH ×2 (08:17→16:43)
[2023-04-04] MEDS: SPIRONOLACTONE 25 MG TABLET PO SCH (08:18)
[2023-04-04] MEDS: FUROSEMIDE 20 MG TABLET PO SCH (08:18)
[2023-04-04] MEDS: APIXABAN 5 MG TABLET PO SCH ×2 (08:23→16:44)
[2023-04-04 12:00] VITALS: BP 89/57; TEMP 97.5; O2SAT 95
[2023-04-04 12:05] VITALS: BP 89/57
== END 2023-04-04 17:25 | DRG 137 ==
LOC: ER 04-01 00:01 → TRANSITION 04-01 04:18 → TELE1 04-01 09:08 → MEDSG1 04-02 10:32
PROVIDERS: ADMIT Internal Medicine; ATTEND Internal Medicine
DX: U07.1 COVID-19 (principal); J96.01 Acute respiratory failure with hypoxia; J12.82 Pneumonia due to coronavirus disease 2019; G93.49 Other encephalopathy; E87.20 Acidosis, unspecified; E87.1 Hypo-osmolality and hyponatremia; E11.42 Type 2 diabetes mellitus with diabetic polyneuropathy; D64.9 Anemia, unspecified; I50.9 Heart failure, unspecified; I11.0 Hypertensive heart disease with heart failure; F03.918 Unspecified dementia, unspecified severity, with other behavioral disturbance; F29 Unspecified psychosis not due to a substance or known physiological condition; I69.398 Other sequelae of cerebral infarction; K74.60 Unspecified cirrhosis of liver; Z86.711 Personal history of pulmonary embolism; Z86.718 Personal history of other venous thrombosis and embolism; K21.9 Gastro-esophageal reflux disease without esophagitis; R13.10 Dysphagia, unspecified; Z79.01 Long term (current) use of anticoagulants; Z79.899 Other long term (current) drug therapy; Z79.51 Long term (current) use of inhaled steroids; D72.829 Elevated white blood cell count, unspecified; E86.1 Hypovolemia; F20.9 Schizophrenia, unspecified; R56.9 Unspecified convulsions; Z93.1 Gastrostomy status; R21 Rash and other nonspecific skin eruption
CPT/HCPCS: 36415; 71045-TC; 80048-TC; 80076-TC; 82962-TC; 83605-TC; 83735-TC; 84100-TC; 84484-TC; 85025-TC; 85378-TC; 85730-TC; 86140-TC; 87040-TC; 87081-TC; 93970-TC; A4223; C9803; G0378; J0456; J0696; J1650; J7030; J7040; J7050; J7060; Q0177

== ENCOUNTER 2023-08-04 14:18 | Emergency (ER) | payer BC ==
[~2023-08-04] VITALS: Ht 172.7 cm; Wt 77.1 kg
[~2023-08-04 14:18] MED LIST changes: -ALBU6.7H9 INH; +AMIN30LI2 PO; +APIX5TAB PO; +BACL10TA PO; +BISA10SU11 RC; +CALC1TAB30 PO; -CRAN3875 PO; +CRAN425C6 PO; -DEXT15DR6 OP; +DOCU-141 PO; -FOLIC ACID PO; +HYDR-500 PO; +LEVE500T9 PO; -MAGN24002 PO; +MAGN400O6 PO; +METF-440 PO; -MUPI22OI7; +POLY15DR40 EACHEYE; -PSYL1PAC8 PO; -SACC250C PO; +SILD20TA2 PO; +TRIA80OI TP; +XEROFORM TD
[2023-08-04] MEDS ORDERED: CLOB15CR4 TP (15:56)
[2023-08-04] MEDS ORDERED: LEVE100S GT (15:56)
[2023-08-04] MEDS ORDERED: CALC-11 PO (15:56)
[2023-08-04] MEDS ORDERED: *INS REG3 SQ (15:56)
[2023-08-04] MEDS ORDERED: DEXT15DR23 EACHEYE (15:56)
[2023-08-04] MEDS ORDERED: MELA3TAB41 PO (15:56)
[2023-08-04 15:57] LABS: CALCIUM, SERUM 8.9 mg/dL (8.5-10.1); CARBON DIOXIDE 27 mmol/L (21-32); CHLORIDE 111 mmol/L (98-107); CREATININE 0.8 mg/dL (0.6-1.3); GLUCOSE 98 mg/dL (74-106); POTASSIUM 4.3 mmol/L (3.5-5.1); SERUM AMMONIA 29 umol/L (11-32); SODIUM SERUM 146 mmol/L (136-145); UREA NITROGEN, BLOOD 7 mg/dL (7-18)
[2023-08-04 16:06] LABS: ALANINE AMINOTRANSFERASE 28 U/L (12-78); ALBUMIN 3.1 g/dL (3.4-5.0); ALKALINE PHOSPHATASE 104 U/L (46-116); ASPARTATE AMINOTRANSFERASE 32 U/L (15-37); BILIRUBIN,DIRECT 0.2 mg/dL (0.0-0.2); BILIRUBIN,TOTAL 0.6 mg/dL (0.2-1.0); TOTAL PROTEIN, SERUM 7.7 g/dL (6.4-8.2)
[2023-08-04 16:09] LABS: THYROID STIMULATING HORMONE 1.404 uIU/mL (0.358-3.74)
[2023-08-04 16:21] LABS: BASOPHILS % (AUTO) 0.2 % (0.0-2.0); EOSINOPHILS # (AUTO) 0.1 K/uL (0.0-0.7); HEMATOCRIT 43 % (39-51); HEMOGLOBIN 14.7 g/dL (13.5-17.5); LYMPHOCYTES # (AUTO) 1.4 K/uL (0.8-4.8); LYMPHOCYTES % (AUTO) 18.4 % (20.0-44.0); MEAN CORPUSCULAR HEMOGLOBIN 29 PG (26.0-33.0); MEAN CORPUSCULAR HGB CONC 34 g/dl (31.0-36.0); MEAN CORPUSCULAR VOLUME 86 fL (80-96); MONOCYTES # (AUTO) 0.7 K/uL (0.1-1.30); MONOCYTES % (AUTO) 9.3 % (2.0-12.0); NEUTROPHILS # (AUTO) 5.5 K/uL (1.8-8.9); NEUTROPHILS % (AUTO) 71.1 % (43.0-81.0); PLATELET COUNT (AUTO) 196 K/uL (150-450); RED BLOOD CELL COUNT(AUTO) 5.03 MIL/uL (4.5-6.0); RED CELL DISTRIBUTION WIDTH 14.7 % (11.5-15.0); WHITE BLOOD COUNT (AUTO) 7.7 K/uL (4.3-11.0)
[2023-08-04 16:28] LABS: INR 1.13 (0.91-1.10); PARTIAL THROMBOPLASTIN TIME 32.8 SEC (24.3-34.3); PROTHROMBIN TIME 11.9 SECS (9.2-11.1)
[2023-08-04 16:29] LABS: AMPHETAMINE, URINE NEGATIVE (NEGATIVE); BARBITURATE, URINE NEGATIVE (NEGATIVE); BENZODIAZEPINE, URINE NEGATIVE (NEGATIVE); CANNABINOID, URINE NEGATIVE (NEGATIVE); COCCAINE, URINE NEGATIVE (NEGATIVE); OPIATE, URINE NEGATIVE (NEGATIVE); PHENCYCLIDINE SCREEN,URINE NEGATIVE (NEGATIVE)
[2023-08-04 22:59] VITALS: BP 119/65; TEMP 98; O2SAT 96
[2023-08-04] MEDS ORDERED: IV NS 0.9% 250 ML IV ONE (23:04)
[2023-08-04] MEDS ORDERED: IOHEXOL-350 100 ML VIAL IV ONE (23:04)
[2023-08-04] MEDS ORDERED: CT SWABBABLE VALVE TRANS SET 1 EA INFUS.SET MC ONE (23:04)
[2023-08-05] MEDS ORDERED: IOHEXOL-350 100 ML VIAL IV ONE (00:04)
[2023-08-05] MEDS ORDERED: CT SWABBABLE VALVE TRANS SET 1 EA INFUS.SET MC ONE (00:04)
[2023-08-05] MEDS ORDERED: IV NS 0.9% 250 ML IV ONE (00:05)
== END 2023-08-04 23:00 | disposition short-term general hospital (02) ==
LOC: ER 14:18
DX: R41.82 Altered mental status, unspecified (principal); R94.31 Abnormal electrocardiogram [ECG] [EKG]; J81.1 Chronic pulmonary edema; I50.9 Heart failure, unspecified; E11.9 Type 2 diabetes mellitus without complications; Z79.4 Long term (current) use of insulin; Z79.899 Other long term (current) drug therapy
CPT/HCPCS: 36415; 70450-TC; 71045-TC; 80048-TC; 80076-TC; 82140-TC; 83880; 84443-TC; 84484-TC; 85025-TC; 85730-TC; J7050; Q9967

== ENCOUNTER 2024-02-14 19:32 | Emergency (ER) | payer BC ==
[~2024-02-14] VITALS: Ht 170.2 cm; Wt 86.2 kg
[~2024-02-14 19:32] MED LIST changes: +*INS REG3 SQ; +CALC-11 PO; -CALC1TAB30 PO; +CLOB15CR4 TP; +DEXT15DR23 EACHEYE; +LEVE100S GT; -LEVE500T9 PO; +MELA3TAB41 PO; -MELA5TAB PO; -OLAN10TA3 PO; -POLY15DR40 EACHEYE; -TRIA80OI TP; -XEROFORM TD
[2024-02-14] MEDS ORDERED: MAG HYDROX/AL HYDROX/SIMETH 30 ML UDC ONE (20:00)
[2024-02-14] MEDS ORDERED: FAMOTIDINE/PF INJ 20 MG/2 ML VIAL IV ONE (20:01)
[2024-02-14] MEDS: FAMOTIDINE/PF INJ 20 MG/2 ML VIAL IV ONE (20:14)
[2024-02-14] MEDS: IV NS 0.9% 500 ML BAG IV ONE (20:14)
[2024-02-14] MEDS: MAG HYDROX/AL HYDROX/SIMETH 30 ML UDC PO ONE (20:14)
[2024-02-14 20:21] LABS: BASOPHILS % (AUTO) 0.5 % (0.0-2.0); EOSINOPHILS # (AUTO) 0.1 K/uL (0.0-0.7); HEMATOCRIT 45 % (39-51); HEMOGLOBIN 15.3 g/dL (13.5-17.5); LYMPHOCYTES # (AUTO) 0.8 K/uL (0.8-4.8); LYMPHOCYTES % (AUTO) 10.3 % (20.0-44.0); MEAN CORPUSCULAR HEMOGLOBIN 29 PG (26.0-33.0); MEAN CORPUSCULAR HGB CONC 34 g/dl (31.0-36.0); MEAN CORPUSCULAR VOLUME 86 fL (80-96); MONOCYTES # (AUTO) 0.8 K/uL (0.1-1.30); MONOCYTES % (AUTO) 9.8 % (2.0-12.0); NEUTROPHILS # (AUTO) 6.1 K/uL (1.8-8.9); NEUTROPHILS % (AUTO) 78.4 % (43.0-81.0); PLATELET COUNT (AUTO) 133 K/uL (150-450); RED BLOOD CELL COUNT(AUTO) 5.29 MIL/uL (4.5-6.0); RED CELL DISTRIBUTION WIDTH 15.7 % (11.5-15.0); WHITE BLOOD COUNT (AUTO) 7.8 K/uL (4.3-11.0)
[2024-02-14 20:44] LABS: BILIRUBIN,DIRECT 0.5 mg/dL (0.0-0.2); BILIRUBIN,TOTAL 2.7 mg/dL (0.2-1.0); CALCIUM, SERUM 8.5 mg/dL (8.5-10.1); CREATININE 0.9 mg/dL (0.6-1.3); POTASSIUM 4.5 mmol/L (3.5-5.1); TOTAL PROTEIN, SERUM 8.5 g/dL (6.4-8.2)
[2024-02-15 00:55] VITALS: BP 115/74; TEMP 98.2; O2SAT 92
== END 2024-02-15 00:55 | disposition home or self-care (01) ==
LOC: ER 19:53
DX: R10.13 Epigastric pain (principal); E80.6 Other disorders of bilirubin metabolism; E11.42 Type 2 diabetes mellitus with diabetic polyneuropathy; I11.0 Hypertensive heart disease with heart failure; I50.9 Heart failure, unspecified; K74.60 Unspecified cirrhosis of liver; Z79.84 Long term (current) use of oral hypoglycemic drugs; Z79.899 Other long term (current) drug therapy; Z86.711 Personal history of pulmonary embolism; Z87.39 Personal history of other diseases of the musculoskeletal system and connective tissue
CPT/HCPCS: 99285; 74176; 96374; 76705; 71045; 93005; 85025; 80048; 83690; 80076; 36415; J3490; J7040

== ENCOUNTER 2024-05-16 15:01 | Emergency (ER) | payer BC ==
[~2024-05-16] VITALS: Ht 170.2 cm; Wt 87.1 kg
[2024-05-16 15:32] LABS: BASOPHILS % (AUTO) 0.5 % (0.0-2.0); EOSINOPHILS # (AUTO) 0.1 K/uL (0.0-0.7); EOSINOPHILS % (AUTO) 1.3 % (0.0-6.0); HEMATOCRIT 45 % (39-51); HEMOGLOBIN 15.5 g/dL (13.5-17.5); LYMPHOCYTES # (AUTO) 1.5 K/uL (0.8-4.8); LYMPHOCYTES % (AUTO) 29.2 % (20.0-44.0); MEAN CORPUSCULAR HEMOGLOBIN 30 PG (26.0-33.0); MEAN CORPUSCULAR HGB CONC 35 g/dl (31.0-36.0); MEAN CORPUSCULAR VOLUME 85 fL (80-96); MONOCYTES # (AUTO) 0.6 K/uL (0.1-1.30); MONOCYTES % (AUTO) 10.6 % (2.0-12.0); NEUTROPHILS # (AUTO) 3.1 K/uL (1.8-8.9); NEUTROPHILS % (AUTO) 58.4 % (43.0-81.0); PLATELET COUNT (AUTO) 135 K/uL (150-450); RED BLOOD CELL COUNT(AUTO) 5.25 MIL/uL (4.5-6.0); RED CELL DISTRIBUTION WIDTH 14.9 % (11.5-15.0); WHITE BLOOD COUNT (AUTO) 5.3 K/uL (4.3-11.0)
[2024-05-16 15:33] LABS: APPEARANCE,URINE CLEAR (CLEAR); BILIRUBIN,URINE NEGATIVE (NEGATIVE); BLOOD, URINE NEGATIVE Ery/uL (NEGATIVE); COLOR,URINE YELLOW (YELLOW); KETONES,URINE NEGATIVE (NEGATIVE); LEUKOCYTE ESTERASE ,URINE NEGATIVE (NEGATIVE); NITRITE, URINE NEGATIVE (NEGATIVE); PROTEIN,URINE NEGATIVE (NEGATIVE); UGLUCOSE NEGATIVE (NEGATIVE)
[2024-05-16 15:37] LABS: ADD URINE CULTURE NO; BACTERIA,URINE Few /HPF (None Seen); RBC,URINE 0-2 /HPF (0-2); SQUAMOUS EPITHELIAL CELL,UR Few /HPF (None Seen); WBC,URINE 0-2 /HPF (0-3)
[2024-05-16 15:47] LABS: ALANINE AMINOTRANSFERASE 28 U/L (12-78); ALBUMIN 3.7 g/dL (3.4-5.0); ALCOHOL, BLOOD < 3 mg/dL (0-10); ALKALINE PHOSPHATASE 95 U/L (46-116); AMPHETAMINE, URINE NEGATIVE (NEGATIVE); ASPARTATE AMINOTRANSFERASE 26 U/L (15-37); BARBITURATE, URINE NEGATIVE (NEGATIVE); BENZODIAZEPINE, URINE NEGATIVE (NEGATIVE); BILIRUBIN,DIRECT 0.3 mg/dL (0.0-0.2); CALCIUM, SERUM 8.3 mg/dL (8.5-10.1); CANNABINOID, URINE NEGATIVE (NEGATIVE); COCCAINE, URINE NEGATIVE (NEGATIVE); CREATININE 0.8 mg/dL (0.6-1.3); GLUCOSE 81 mg/dL (74-106); OPIATE, URINE NEGATIVE (NEGATIVE); PHENCYCLIDINE SCREEN,URINE NEGATIVE (NEGATIVE); TOTAL PROTEIN, SERUM 7.5 g/dL (6.4-8.2); UREA NITROGEN, BLOOD 10 mg/dL (7-18)
[2024-05-16 15:52] LABS: ACETAMINOPHEN <10 ug/ml (10-30); SALICYLATE < 0.2 mg/dL (2.8-20.0)
[2024-05-16 15:56] LABS: CARBON DIOXIDE 29 mmol/L (21-32); CHLORIDE 104 mmol/L (98-107); POTASSIUM 3.7 mmol/L (3.5-5.1); SODIUM SERUM 140 mmol/L (136-145)
[2024-05-16 18:00] VITALS: BP 113/70; TEMP 98; O2SAT 98
== END 2024-05-16 18:32 ==
LOC: ER 17:22
DX: R45.1 Restlessness and agitation (principal); G47.00 Insomnia, unspecified; E11.42 Type 2 diabetes mellitus with diabetic polyneuropathy; I11.0 Hypertensive heart disease with heart failure; I50.9 Heart failure, unspecified; Z79.01 Long term (current) use of anticoagulants; Z79.84 Long term (current) use of oral hypoglycemic drugs; Z79.899 Other long term (current) drug therapy; Z86.711 Personal history of pulmonary embolism; Z20.822 Contact with and (suspected) exposure to COVID-19
CPT/HCPCS: 36415; 80048-TC; 80076-TC; 81001; 85025-TC; G0480